=== PATIENT | female | born 1945 | race Caucasian/White ===

== ENCOUNTER 2018-07-28 20:26 | Inpatient (IN) | payer OTHER ==
[~2018-07-28] VITALS: Ht 162.6 cm; Wt 59.3 kg
[~2018-07-28 20:26] MED LIST: ALBUTEROL2.5 MG/31 INH; ALLEGRA ALLERG180 MG PO; CALCIUM 600 +1 EAC1 PO; CVS OMEGA-3 KR1 EACH PO; FLONASE 0.05%50 MCG NASAL; IRON325 PO; LEVAQUIN 500 M500 M3 PO; MAGNESIUM100 MG PO; OSTEO BI-FLEX1 EAC4 PO; PREDNISONE 10 M10 MG PO; PROTONIX40 M1 PO; REFRESH OPTIVE15 ML OPHTHALMIC; SINGULAIR 10 MG10 M1 PO; TYLENOL EXTRA500 MG PO; UNICOMPLEX M TA1 TA1 PO; VITAMIN D3400 UNIT PO
[2018-07-28 20:38] VITALS: BP 144/65
[2018-07-28] MEDS ORDERED: SEREVENT DISKU50 MCG INH (20:45)
[2018-07-28] MEDS ORDERED: IPRATROPIU0.2 MG/1 M INH (20:46)
[2018-07-28] MEDS ORDERED: ZYRTEC10 M5 PO (20:47)
[2018-07-28] MEDS ORDERED: OSTEO BI-FLEX1 EAC4 PO (20:49)
[2018-07-28] MEDS ORDERED: FISH OIL 1,001000 M2 PO (20:50)
[2018-07-28 21:10] LABS: HEMATOCRIT 36.7 % (37.0-47.0); HEMOGLOBIN 12.4 gm/dL (12.0-15.0); MCH 32.1 pg (26.0-34.0); MCHC 33.7 g/dL (28.0-37.0); MCV 95.1 fL (80.0-100.0); MPV 8.7 fl. (7.2-11.1); NUCLEATED RBCS 0 /100WBC; PLATELET COUNT* 278 thou/uL (150-400); RBC 3.86 mil/uL (4.20-5.00); RDW-CV 14.7 % (10.5-14.5); WBC 7.7 thou/uL (4.0-11.0)
[2018-07-28 21:11] LABS: INFLUENZA A ANTIGEN None Detected (None Detect); INFLUENZA B ANTIGEN None Detected (None Detect)
[2018-07-28 21:17] LABS: ALBUMIN 3.3 g/dL (3.4-5.0); POTASSIUM 3.8 mmol/L (3.5-5.1); TOTAL BILIRUBIN 0.1 mg/dL (<0.1-1.0); TOTAL PROTEIN 6.1 g/dL (6.4-8.2)
[2018-07-28 21:35] LABS: ABSOLUTE EOSINOPHILS 0.9 thou/uL (0.0-0.7); ABSOLUTE LYMPHOCYTES 1.5 thou/uL (0.8-5.3); ABSOLUTE MONOCYTES 0.5 thou/uL (0.0-1.2); ABSOLUTE NEUTROPHILS 4.7 thou/uL (1.6-8.1)
[2018-07-28 21:37] LABS: PLATELET ESTIMATE ADEQUATE
[2018-07-28 22:49] VITALS: BP 127/57
[2018-07-29] VITALS: BP 146/78
[2018-07-29] MEDS ORDERED: VITAMIN D31000 UNIT PO (02:36)
[2018-07-29] MEDS ORDERED: IPRAT-ALBUT 0.5-3 ML INH (02:36)
[2018-07-29] MEDS ORDERED: CALCIUM 600 +1 EAC2 PO (02:39)
[2018-07-29] MEDS ORDERED: PROBIOTIC1 EAC1 PO (02:40)
[2018-07-29] MEDS ORDERED: PROLIA60 MG/1 ML INJECTION (02:42)
[2018-07-29] MEDS ORDERED: VITAMINC500 PO (02:44)
[2018-07-29] MEDS ORDERED: MAGOX 400400 MG PO (02:46)
[2018-07-29 03:07] LABS: URINE BILIRUBIN NEGATIVE (Negative); URINE BLOOD 1+ (Negative); URINE CLARITY CLEAR; URINE COLOR YELLOW; URINE GLUCOSE-RANDOM NEGATIVE (Negative); URINE KETONES TRACE (Negative); URINE LEUKOCYTES 1+ (Negative); URINE NITRITE NEGATIVE (Negative); URINE PROTEIN NEGATIVE (Negative); URINE SPECIFIC GRAVITY 1.025 (1.005-1.030); URINE UROBILINOGEN 0.2 E.U./dl (0.2-1.0)
[2018-07-29 03:13] LABS: SQUAMOUS 4-10 Moderate /LPF (0-3); URINE WBC 6-15 Few /HPF (0-5)
[2018-07-29 03:14] LABS: BACTERIA >30 Many /HPF (None Seen); CASTS None Seen /LPF (None Seen); CRYSTALS None Seen /LPF (None Seen); MUCUS 0-3 Light strn/LPF (None Seen); URINE RBC 3-10 Few /HPF (0-2)
[2018-07-29 04:00] VITALS: BP 99/55
--- NOTE | 2018-07-29 05:47 | NUR ---
REPORT RECVIEVED FROM ER. PT ORIENTED TO ROOM, FALL AGREEMENT GONE OVER, CALL LIGHT SHOW, PT STATED UNDERSTANDING. ADMISSION DOCUMENTED. IV PATENT, ABX INFUSED. NO REPORTS OF PAIN. O2 ON THIS SHIFT. WILL CONTINUE WITH PLAN OF CARE.
[2018-07-29 07:50] VITALS: BP 124/70
--- NOTE | 2018-07-29 09:15 | EKG ---
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: Segundo VALERO : 1945 Requested By: Freda Torrez Order Number: [id number] MD: Alejandro Chanel Measurements Intervals [place] Rate: 92 P: 46 [place]: 192 QRS: -27 QRSD: 89 T: 22 QT: 330 QTc: 409 Interpretive Statements Sinus rhythm Ventricular premature complex Inferior infarct, old No previous ECG available for comparison Electronically Signed On 07-29-2018 9:15:45 CDT by Alejandro Chanel [email or web address] <ELECTRONICALLY SIGNED> By: Alejandro Chanel MD, [facility] 07/29/18914 50 50 Alejandro Chanel MD, FACC /EPI
[2018-07-29 15:30] VITALS: BP 113/59
--- NOTE | 2018-07-29 16:44 | NUR ---
SW met with pt and pt dtr to complete initial assessment, introduce self, and SW role. Pt was alert, oriented. Pt lives at home with her dtr and her dtr is very supportive and provides care as needed. Pt has a cane and a nebulizer. Pt does not have home oxygen. SW to continue to follow to assist with safe dc planning.
--- NOTE | 2018-07-29 17:34 | NUR ---
PATIENT RESTING IN BED. PATIENT UP STANDBY TO BATHROOM. PATIENT DENIES TROUBLE BREATHING, BUT IS SHORT OF AIR WITH EXERTION. PATIENT DENIES ANY PAIN. PATIENT HAS GOOD APPETITE. PATIENT DENIES ANY NEEDS AT THIS TIME. CALL LIGHT WITHIN REACH. WILL CONTINUE TO MONITOR.
[2018-07-29 19:30] VITALS: BP 117/56
[2018-07-30 04:00] VITALS: BP 110/56
[2018-07-30 04:22] LABS: HEMATOCRIT 35.9 % (37.0-47.0); HEMOGLOBIN 11.9 gm/dL (12.0-15.0); MCH 31.7 pg (26.0-34.0); MCHC 33.2 g/dL (28.0-37.0); MCV 95.5 fL (80.0-100.0); RBC 3.76 mil/uL (4.20-5.00); RDW-CV 14.7 % (10.5-14.5); WBC 13.2 thou/uL (4.0-11.0)
[2018-07-30 04:35] LABS: CALCIUM 8.5 mg/dL (8.5-10.1); CREATININE 0.8 mg/dL (0.6-1.3)
[2018-07-30 08:30] VITALS: BP 128/72
--- NOTE | 2018-07-30 10:48 | CON ---
[address] [address] CONSULTATION Name: ESTRADADONNIE Lora Room: [address] IN [facility].#: [id number] Admission: 07/28/18 Attend Phys: Regina Davenport MD Discharge: Date of : 45 Report #: [id number] THIS REPORT FOR: //name// CC: Rory Olsen JessicaVasquez Gale DATE OF SERVICE: 07/29/2018 ATTENDING PHYSICIAN: Rory Willis MD LOCATION: She is located in room 310. INDICATION FOR CONSULTATION: Asthma, wheezing, cough and shortness of air. CLINICAL SUMMARY: The patient is a 72-year-old female, lifelong nonsmoker, although she has had secondhand smoke exposure with a 12 to 14 year history of asthma. Over the last 3 to 5 days prior to admission, the patient had increasing cough or shortness of breath. I think she got a virus, thought her hiatal hernia with reflux was acting up. Denies any sinus drainage. She was taking her DuoNeb treatments 4 times a day at home, was not on any prednisone. She is supposed to see Dr. Kamara on Wednesday on 08/01/2018 for a new patient appointment. A portable chest x-ray showed COPD, kyphosis, possibly right hilar fullness. The patient denies any hemoptysis or weight loss. She is still wheezing and feels a little bit better. She is not on any oxygen at home. She is on 2 liters here in the hospital. She only takes prednisone tapers maybe once or twice a year at home for her asthma and bronchitis and it seems it has been helping her as of late. She has not been on Symbicort lately, it seemed to be too expensive and was not helping her. She has not been on Advair or Breo before. PAST MEDICAL HISTORY: She had a history of asthma with exacerbations, also bronchitis and pneumonia and hiatal hernia with reflux. Also has kyphosis and osteoporosis and is on Prolia for that. OUTPATIENT MEDICATIONS: Includes Prolia IV every 6 months. She is on Protonix 40 mg daily and Prolia 60 mg injection every 12 months or denosumab, calcium carbonate and vitamin D tablet 2 tablets each daily [id number] whatever one she can use, cetirizine 10 mg daily, Serevent Diskus 50 mcg 1 puff b.i.d. and then also montelukast 10 mg every evening. DuoNeb treatments 4 times a day. OTHER PAST MEDICAL AND SURGICAL HISTORY: Include asthma, GERD and surgical history includes tonsillectomy, hysterectomy in 1975, cholecystectomy in 1995, [place] [address] CONSULTATION Name: DONNIE ESTRADA Room: [address] IN ..#: [id number] Admission: 07/28/18 Attend Phys: Regina Davenport MD Discharge: Date of : 45 Report #: [id number] skin cancer in lower back in 1994, a broken left ankle in 2000 and breast biopsies, benign, in 2008. FAMILY HISTORY: Negative for premature cardiopulmonary disease. SOCIAL HISTORY: The patient is about 20 years from her . She was a never smoker. Her was a heavy smoker. She had secondhand smoke exposure from him. I think she started coughing and wheezing 10-15 years ago although they have been for 20 years and she drinks one glass of wine a month. She lives with her daughter in [place], [place]. Her daughter's name is Missy. REVIEW OF SYSTEMS: A 14-point review of systems reviewed and negative except for pertinent positives noted in the HPI. PHYSICAL EXAMINATION: VITAL SIGNS: Blood pressure is 124/70, heart rate is 88, respirations are 16, saturation on 2 liters 95%, and temperature is 36.7 degrees. She is 5 feet 4 inches tall and she used to be 5 feet 6 inches tall. She has lost 2 inches of height and weight 132 pounds or 60 kilograms. BMI is 22. HEENT: Nares and pharynx are clear. NECK: Limited range of motion, no increase in jugular venous pressure. CHEST: Reveals bilateral rhonchi and expiratory wheeze, right a little greater than left, but is bilateral prolonged expiratory phase. No stridor noted. CARDIOVASCULAR: Regular rate and rhythm without murmur, gallop or rub. Heart rate is 88. ABDOMEN: Soft and benign, without masses or megaly. EXTREMITIES: Trace edema on the right, none on the left. No cyanosis, clubbing or edema is noted. NEUROLOGIC: Grossly intact, moves all four commands to limbs and follows commands. Neurologic otherwise is grossly intact. LABORATORY DATA: From yesterday, hemoglobin is 12, white count 7700 and platelets are 278,000. Sodium is 147, potassium is 3.8, chloride 109, carbon dioxide is 29, BUN is 27, creatinine is 1.0 and glucose is 105. Albumin is normal at 3.3 and total protein is normal at 6.1. No ABGs on this patient. Serology: Influenza A and B are negative. Coags within normal limits. D-dimer was normal at 0.37. Urinalysis was unremarkable. Portable upright chest x-ray shows moderate kyphosis and some right hilar fullness, I think it is more of COPD and probably some pulmonary artery enlargement. She has flattened diaphragms. Hyperinflation is noted as well as a restrictive defect. IMPRESSION: Moderately severe chronic obstructive pulmonary disease with asthma. PLAN: Dr. Kamara can sit tight on Wednesday. [place] [address] CONSULTATION Name: DONNIE ESTRADA Room: [address] [place] [facility]#: [id number] Admission: 07/28/18 Attend Phys: Regina Davenport MD Discharge: Date of : 45 Report #: [id number] in the office on Wednesday. We will make sure she is stable though. If we need to we will see her in the office and obtain full PFTs. We will get a followup chest x-ray in the hospital and maybe a CT of the chest with contrast to make sure there is no right hilar adenopathy or mass lesions. Even though she is a nonsmoker, she has had secondhand smoke exposure. I do not think she needs bronchoscopy at this time. Full PFTs may be helpful and she may need to be on Breo 200/5 mcg 1 puff twice a day or Anoro might be another option 1 puff twice a day. She has tried Symbicort in the past and seemed to be effective. We will add some albuterol tablets and then Breo 200/5 mcg 1 puff daily would be a good option in the future for insurance covers this. Try and keep her off oral steroids. She may need a burst of about 2 weeks to get her cough or wheezing under control and then proceed from there. Thanks again for allowing us to participate in this lady's care. We will follow up along with you. Try and keep her with her osteoporosis, try and keep her off oral steroids, work on her kyphoscoliosis and start a flutter valve. She is up-to-date on her flu and pneumonia vaccines. <ELECTRONICALLY SIGNED> By: Talita Kwong MD 07/30/18 1048 1204 0115Antkeaton Miller MD /nt
[2018-07-30 15:43] VITALS: BP 96/43
--- NOTE | 2018-07-30 16:39 | NUR ---
PT HAS BEEN UP TO CHAIR AND CALLS FOR ASSIST TO BATHROOM WITH CANE.PT VOIDING WELL AND DRINKING FLUIDS WELL. PT ALERT AND ORIENTATED AND HAS BEEN ON ROOM AIR WITH SAT 92-94.HOURLY ROUNDING CONTINUES.
[2018-07-30 20:20] VITALS: BP 110/74
[2018-07-30 21:31] LABS: NT-PRO BRAIN NAT PEPTIDE 371 pg/mL (<300); TROPONIN-I LEVEL <0.06 ng/mL (<0.06)
[2018-07-30 22:50] VITALS: BP 101/68
[2018-07-30 23:30] VITALS: BP 116/56
[2018-07-31] VITALS (8 sets, daily range): BP systolic 101–132; BP diastolic 39–62
--- NOTE | 2018-07-31 00:37 | NUR ---
INITAL ASSESMENT COMPLATED AT 2019. PT RESTING IN ED AT THAT TIME. PT'S HEART RATE PER O2 SAT PROBE 151. PT PLACED ON CARD RUNNER, [address] NATALIE AGUERO. OBTAINED STAT TROPONIN AND B NATRIATIC PEPTIDE. PORTABLE CHEST XRAY DONE. DR ESTRADA CALLED BACK. REPORTED PT'S HEART RATE, RHYTHYM, BLOOD PRESSURE AND O2 SAT. REPORTED LABS AND XRAY IN PROGRESS. RECIEVED ORDERS. CARDIOLOGY CNSILUT CALLED. SPOKE WITH DR CAROLINA GUNDERSON. GAVE REPORT ON PT'S REASON FOR ADMISSION, VITAL SIGNS, 12 LEAD EKG. READ IMPRESSION OF PRTABLE CHEST XRAY. REPORTED MEDS AND BREATHING TREATMENTS. RECIEVED MULTIPLE ORDERS. PT GIVEN CARDIZEM BOLUS AND STARTED ON CARDIZEM DRIP. PT AFIB ON MONITOR. HEART RATE DECREASED TO 110-130. BLOOD PRESURE MONITORED Q 30 MINUTES AFTER BOLUS AND DRIP STARTED. MOST RECENT BLOOD PRESSURE 116/56. PT DENIES CHEST PAIN OR SHORTNESS OF AIR. PT PLACE ON O2 AT 2 LITERS NASAL CANULA PER CHEST PAIN PROTOCOL. PT GIVEN 325 MG PO ASPIRIN PER ORDERS. CALL LIGHT IN REACH. PT USING APROPRIATELY.
[2018-07-31 04:24] LABS: CREATININE 0.8 mg/dL (0.6-1.3); POTASSIUM 3.9 mmol/L (3.5-5.1)
[2018-07-31 05:13] LABS: CALCIUM 8.6 mg/dL (8.5-10.1)
--- NOTE | 2018-07-31 06:01 | NUR ---
PT IN AFIB RVR AT START OF SHIFT. PT GIVEN 10 CARDIZEM BOLUS FOLLOWED BY CARDIZEM DRIP AT 5 MG/HR. PT'S HEART RATE WAS 150-170 PRIOR TO STARTING CARDIZEM. PT'S HEART RATE CONTROLLED IN 90'S. PT'S BLOOD PRESSURE WITHIN NORMAL LIMITS. O2 SAT 95-99% ON 2 LITERS O2. PT ASYMPTOMATIC WHEN IN AFIB RVR. PT BEING TRANSFERED TO ROOM 214, REPORT GIVEN TO JACKY PERLA.
[2018-07-31 06:17] LABS: ABSOLUTE LYMPHOCYTES 1.8 thou/uL (0.8-5.3); ABSOLUTE NEUTROPHILS 8.7 thou/uL (1.6-8.1); BASOPHILS 0.3 %; EOSINOPHILS 0.4 %; HEMATOCRIT 35.5 % (37.0-47.0); HEMOGLOBIN 11.9 gm/dL (12.0-15.0); LYMPHOCYTES 15.4 %; MCH 32.2 pg (26.0-34.0); MCHC 33.6 g/dL (28.0-37.0); MCV 95.8 fL (80.0-100.0); MONOCYTES 8.4 %; MPV 9.3 fl. (7.2-11.1); NUCLEATED RBCS 0 /100WBC; PLATELET COUNT* 283 thou/uL (150-400); POLYS 75.5 %; RBC 3.71 mil/uL (4.20-5.00); RDW-CV 14.7 % (10.5-14.5); WBC 11.5 thou/uL (4.0-11.0)
--- NOTE | 2018-07-31 06:28 | NUR ---
pt transfer complete. called pt's daughter and gave update on change in condition, treatments and tests done and pt's new room #.
--- NOTE | 2018-07-31 06:45 | NUR ---
REPORT RECEIVED FROM Austin BAIG. PT TRANSFERRED TO ROOM 214 AT APPROXIMATELY 0615. PT ORIENTED TO ROOM, CALL LIGHT. VOICES UNDERSTANDING ABOUT FALL PRECAUTIONS. TRACING AFIB ON MONITOR. CLWR.
--- NOTE | 2018-07-31 16:24 | CON ---
[address] [address] CONSULTATION Name: DONNIE ESTRADA Room: [address] IN .R.#: [id number] Admission: 07/28/18 Attend Phys: Regina Davenport MD Discharge: Date of : 45 Report #: [id number] THIS REPORT FOR: //name// CC: Regina Laraa. [facility] CARDIOLOGY CONSULTATION. HISTORY OF PRESENT ILLNESS: I was asked by Dr. Regina Davenport to see this 72-year-old white female in cardiology consultation for evaluation and treatment of paroxysmal atrial fibrillation. This lady was admitted to the hospital on 07/28/2018 with acute hypoxic respiratory failure and asthma. There are some questions as to whether she had sepsis and pneumonia. She was found to be in atrial fibrillation last night on the medical floor, she was in room 310 last night. She was not on a monitor. The nurse noted her pulse was rapid and irregular. An EKG was obtained and showed atrial fibrillation with a rapid ventricular response and she was subsequently placed on a monitor. She was transferred to telemetry and started on diltiazem and this morning converted to sinus rhythm. She was asymptomatic with her atrial fibrillation. She was completely unaware of being in it, she had absolutely no complaints. This lady has no prior cardiac history whatsoever. She has never had angina or chest pain. She has never had a heart attack. She denies dyspnea on exertion, shortness of breath at rest, orthopnea, PND or edema. She has not had syncope or near syncope. She has no coronary risk factors, she does not smoke and never smoked, does not have hypercholesterolemia, diabetes, high blood pressure or family history of heart disease. She has not had renal disease or peripheral vascular disease. She has never had a stroke or TIA, does not have claudication or open or nonhealing wounds. She has no prior cardiac history whatsoever. She does have a history of asthma. MEDICATIONS: Home medication list is extensive. The home medication list includes Zyrtec 10 mg daily, Prolia 60 mg injected every 6 months, fluticasone nasal spray daily, DuoNeb q.6 hours at home, Mag-Ox 400 daily as needed for leg cramps, montelukast 10 mg daily, pantoprazole 40 mg daily and Serevent one inhalation twice a day. In the hospital, she was getting DuoNebs q.4 hours. She was subsequently switched to Xopenex 0.63 mg q.8 hours when she was found to be in atrial fibrillation. ALLERGIES: SHE IS SENSITIVE TO ASPIRIN IN THAT IT UPSETS HER STOMACH. SHE IS ALLERGIC TO ERYTHROMYCIN AND CLARITIN-D, WHICH GAVE HER HIVES. REVIEW OF SYSTEMS: Positive for cough, sputum production, pneumonia, emphysema, asthma, seasonal allergies, medical allergies, aspirin sensitivity, arthritis in the right knee, wears glasses, and bleeding from the nose. Otherwise, review of systems is negative for some 40 different complaints in 14 different system categories including central nervous system, general, respiratory, [place] [address] CONSULTATION Name: DONNIE ESTRADA Room: [address] IN [facility]#: [id number] Admission: 07/28/18 Attend Phys: Regina Davenport MD Discharge: Date of : 45 Report #: [id number] cardiovascular, endocrine, gastrointestinal, genitourinary, hematologic, lymphatic, allergic, immunologic, psychiatric, musculoskeletal, skin, eyes, ears, nose, mouth, and throat. Please see review of system form for details and negatives in the review of systems. SOCIAL HISTORY: She is . 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 She never ever drank and never ever smoked cigarettes. FAMILY HISTORY: Remarkable for father dying of a heart attack. There is no family history of sudden or other cardiac issues. PHYSICAL EXAMINATION: GENERAL: She presents as a well-developed, well-nourished white female, in no acute distress. She is able to talk in paragraphs. VITAL SIGNS: Her pulse is 90 and regular, blood pressure is 109/61, respirations are 15 and regular, temperature is 98.7. HEENT: Her head was atraumatic. Eyes clear. NECK: Supple. There is no jugular venous distention or hepatojugular reflux. Thyroid is not enlarged. No adenopathy. SKIN: Warm and dry. Mucous membranes are moist. LUNGS: Clear to auscultation and percussion. HEART: Revealed normal first and second heart sounds. There is soft S4. There is no S3. There are no murmurs, rubs, thrills, heaves or gallops. PMI is nondisplaced. ABDOMEN: Soft, flat, nontender, no palpable masses, no organomegaly. EXTREMITIES: Reveal no cyanosis, clubbing or edema. NEUROLOGIC: The patient mentated normally, talked normally, moved all extremities normally. LABORATORY DATA: Troponins on this lady last night were negative x 3 and she had a normal NT-proBNP. Her EKG on admission showed normal sinus rhythm with one VPC. The computer called an old inferior infarct, but I do not think there is. There are very small R waves in leads 3 and F and a normal R-wave in lead 2. Her EKG last night showed atrial fibrillation with a rapid ventricular response. Again, the computer called it inferior and lateral infarct; I do not see that on the EKG myself. IMPRESSION: 1. Paroxysmal atrial fibrillation. 2. Acute hypoxic respiratory failure, now resolved. 3. Asthma with an asthmatic exacerbation, now improved. RECOMMENDATION: Get a nuclear stress test and an echo. She also should have an outpatient event recorder. I think this was probably an isolated event related to her severe respiratory insufficiency that has now resolved and also likely exacerbated by the aggressive [place] [address] CONSULTATION Name: DONNIE ESTRADA Room: [address] IN .R.#: [id number] Admission: 07/28/18 Attend Phys: Regina Davenport MD Discharge: Date of : 45 Report #: [id number] Thank you very much for asking me to see the patient. If there are any questions, please feel free to contact me. <ELECTRONICALLY SIGNED> By: Steve Hunter MD, FACC 07/31/18 1624 1222 1529F. Shubham Hunter MD, FAC /nt
--- NOTE | 2018-07-31 17:47 | EKG ---
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: PHILIPP : 1945 Requested By: Levy Couch Order Number: [id number] Neto MD: Alejandro Chanel Measurements Intervals [place] Rate: 156 P: [place]: QRS: -28 QRSD: 129 T: -28 QT: 269 QTc: 434 Interpretive Statements supraventricular tachycardia Artifact in lead(s) I,II,III,aVR,aVL Compared to ECG 07/28/2018 20:51:48 Sinus rhythm no longer present Electronically Signed On 07-31-2018 17:47:24 CDT by Alejandro Chanel [email or web address] <ELECTRONICALLY SIGNED> By: Alejandro Chanel MD, [facility] 07/31/18 1747 55 55 Alejandro Chanel MD, [facility] /EPI
--- NOTE | 2018-07-31 18:55 | NUR ---
I ASSUMED CARE OF THE PATIENT AT 0700. SHE IS ALERT AND ORIENTED X4 AND IS UP WITH ASSIST OF 1. SHE LIVES AT HOME WITH HER DAUGHTER. BED IS IN THE LOW LOCKED POSITION AND CALL LIGHT IS IN REACH. HOURLY ROUNDING WAS COMPLETED AND PATIENT NEEDS ARE MET. PAIN IS DENIED. IV WAS REMOVED AND NEW LINE WAS PLACED. STRESS TEST IS 08/01. CARDIZEM DRIP WAS D/C'D AFTER PATIENT CONVERTED. WILL CONTINUE TO MONITOR.
[2018-08-01] VITALS: BP 121/83
[2018-08-01 04:00] VITALS: BP 120/90
--- NOTE | 2018-08-01 05:27 | NUR ---
ASSUMED PT CARE AT 1930. 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 PT DENIES PAIN THIS SHIFT, NPO AFTER MIDNIGHT FOR STRESS TEST. CALL LIGHT WITHIN REACH.
[2018-08-01 08:00] VITALS: BP 122/77
--- NOTE | 2018-08-01 09:58 | EKG ---
[place] [address] ELECTROCARDIOGRAM REPORT Name: DONNIE ESTRADA Room: [address] ADM IN .R.#: [id number] Admission: 07/28/18 Attend Phys: Regina Davenport MD Discharge: Date of : 45 Report #: [id number] THIS REPORT FOR: //name// [facility] Test Date: 2018-07-31 Test Time: 12:42:33 Pat Name: DONNIE ESTRADA Department: Room: [address] Gender: F Customer Project Manager: : 1945 Requested By: Steve Hunter Order Number: [id number] Reading MD: Alejandro Chanel Measurements Intervals [place] Rate: 82 P: 14 [place]: 187 QRS: -24 QRSD: 86 T: 8 QT: 349 QTc: 408 Interpretive Statements Sinus rhythm Supraventricular bigeminy Borderline left axis deviation Low voltage, precordial leads Consider anterior infarct Compared to ECG 07/30/2018 20:56:49 Supraventricular tachycardia no longer present Electronically Signed On 08-01-2018 9:58:23 CDT by Alejandro Chanel [email or web address] <ELECTRONICALLY SIGNED> By: Alejandro Chanel MD, FACC 08/01/18 0958 1242 1242 Alejandro Chanel MD, FAC /EPI
--- NOTE | 2018-08-01 11:54 | NUR ---
ASSUMED PT CARE AT 0800, LYING IN BED, FAMILY AT BEDSIDE, DENIES PAIN. PT O2 SAT 94% NC 2L. A0X4, SBA, USES CANE. 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 COUGHING, WHEEZES NOTED. ABDOMEN SOFT, ROUND LAST BM THIS AM, IV ACCESS INTACT. NPO FOR STRESS TEST. FOR ECHO. VSS, AM ASSESSMENT CHARTED, MEDS PER MAR, HOURLY ROUNDING OBSERVED, SAFETY PRECAUTION, CALL LIGHT WITHIN REACH, WILL CONTINUE TO MONITOR.
[2018-08-01 13:05] VITALS: BP 129/71
[2018-08-01 16:30] VITALS: BP 119/63
--- NOTE | 2018-08-01 16:33 | CARDNUC ---
[place] [address] CARDIAC NUCLEAR IMAGING REPORT Name: DONNIE ESTRADA Room: [address] IN [facility]#: [id number] Admission: 07/28/18 Attend Phys: Regina Davenport, Discharge: Date of : 45 Date of Service: 08/01/18 1633 Report #: [id number] THIS REPORT FOR: //name// APPROVED REPORT Imaging Protocol: Rest Tc-99m/Stress Tc-99m 1 day Study performed: 07/31/2018 12:40:00 Indication: RVR, New onset Afib. Patient Location: In-Patient Room #: [facility] Stress Tech: Ashley Olivarez Stress Nurse: Piper Stone RN Ht: 5 ft 4 in Wt: 133 lbs BSA: 1.64 m2 BMI: 22.82 Medical History Medical History: Arrhythmia, Atrial Fibrillation, No history of CAD. Medications: Diltiazem. Allergies: ASA, Erythromycin, Loratadine, Pseudoephedrine. Cardiac Risk Factors: Age. Previous Cardiac Procedures: None Pretest Chest Pain Characteristics: No chest pain Exercise History: Sedentary Physical Disabilities: Fall risk, uses cane for ambulation, unsteady. Meds Held (24 hrs): None Resting Data Rest SPECT myocardial perfusion imaging was performed in supine position 30 minutes following the intravenous injection of 12.0 mCi of Tc-99m Sestamibi. Time of rest injection: 08:30 The images were gated to evaluate regional wall motion and calculate left ventricular ejection fraction. Administration Route: IV Administration Site: Left Arm Pharmacologic Stress Pharmacologic stress test was performed by injecting Regadenoson 0.4 mg IV push over 10-15 seconds immediately followed by the intravenous injection of 31.5 mCi of Tc-99m Sestamibi. Time of stress injection: 09:50 [place] [address] CARDIAC NUCLEAR IMAGING REPORT Name: DONNIE ESTRADA Room: [address] IN ..#: [id number] Admission: 07/28/18 Attend Phys: Regina Davenport, Discharge: Date of : 45 Date of Service: 08/01/18 1633 Report #: [id number] Administration Route: IV Administration Site: Left Arm Heart Rate at time of stress injection: 103 bpm. Gated Stress SPECT was performed 45 minutes after stress injection. The images were gated to evaluate regional wall motion and calculate left ventricular ejection fraction. Stress Test Details Stress Test: Pharmacologic stress testing performed using 0.4 mg of regadenoson per 5 mL given IV over 10 seconds. Reason for pharmacologic stress test: Fall risk, Uses cane to ambulate, unsteady.. HR Max Heart Rate (APMHR): 148 bpm Resting HR: 81 bpm Target HR (85% APMHR): 125 bpm Max HR Achieved: 113 bpm % of APMHR: 76 Recovery HR: 100 bpm BP Resting BP: 121/84 mmHg Max BP: 129/79 mmHg Recovery BP: 137/81 mmHg BP response to stress: Normal blood pressure response to stress. ECG Resting ECG: nsr Stress ECG: nsr pvc ST Change: none Arrhythmia: none Recovery ECG: nsr Recovery ST Change: none Recovery Arrhythmia: none Clinical Reason for Termination: Completed protocol Stress Symptoms: Lightheaded, Stomach ache. Exercise duration: 0 min 0 sec Exercise capacity: 1.00 METs Nurse Comments 72 year old female inpatient presented mildly/pleasantly confused, unstable gait. Patient required 2x assist to transfer. Patient tolerated sitting Lexiscan well with minimal side effects which resolved with PO caffeine. Recovery [place] [address] CARDIAC NUCLEAR IMAGING REPORT Name: DONNIE ESTRADA Room: [address]#: [id number] Admission: 07/28/18 Attend Phys: Regina Davenport, Discharge: Date of : 45 Date of Service: 08/01/18 1633 Report #: [id number] via wheelchair by staff to Nuclear Medicine for images. Patient stable with no complaints at that time. Stress ECG Conclusion negative Study Quality Study: Good Artifact: Mild Breast artifact Lung Uptake: Normal Study Data SSS: 3 SRS: 0 SDS: -3 TID = 0.69. Perfusion Review of rest data reveals normal perfusion, without perfusion defects.Imaging obtained following vasodilator stress demonstrate a similar, uniform uptake of tracer without defects. Prone imaging was normal. LVEDV is normal.No segental wall motion abnormality seen. Images were reviewed using Qomuty. Wall Motion normal all segments Nuclear Conclusion ECG Findings: negative for ischemia Clinical Findings: negative for ischemia Nuclear Findings: negative for ischemia Exercise Capacity: not assessed Left Ventricular Function: normal Risk Study: low Negative perfusion nuclear stress test for ischemia or infarct. <Conclusion> negative <ELECTRONICALLY SIGNED> By: Duane Bowman MD, FACC 08/01/18 1633 1633 1633 Duane Bowman MD, FACC /INF
--- NOTE | 2018-08-01 17:32 | 2DMMODE ---
[place] [address] 2 D/M-MODE ECHOCARDIOGRAM Name: DONNIE ESTRADA Room: [address] IN [facility]#: [id number] Admission: 07/28/18 Attend Phys: Regina Davenport, Discharge: Date of : 45 Date of Service: 08/01/18 1732 Report #: [id number] THIS REPORT FOR: //name// APPROVED REPORT Study performed: 08/01/2018 14:24:23 EXAM: Comprehensive 2D, Doppler, and color-flow Echocardiogram Patient Location: In-Patient Room #: [facility] Status: routine BSA: 1.64 HR: 89 bpm BP: 120/90 mmHg Rhythm: NSR Other Information Study Quality: Good Indications Chest Pain 2D Dimensions IVSd: 9.67 (7-11mm) LVOT Diam: 21.06 (18-24mm) LVDd: 51.65 mm PWd: 8.10 (7-11mm) LVDs: 31.25 (25-40mm) Aortic Root: 29.23 mm Volumes Left Atrial Volume (Systole) LA ESV Index: 23.00 mL/m2 Aortic Valve AoV Peak Tim.: 2.31 m/s AO Peak Gr.: 21.32 mmHg LVOT Max P.07 mmHg AO Mean Gr.: 10.81 mmHg LVOT Mean P.22 mmHg LVOT Max V: 1.33 m/s AO V2 VTI: 34.27 cm LVOT Mean V: 0.81 m/s ADELE (VTI): 2.23 cm2 LVOT V1 VTI: 21.92 cm AI [place]: 2.74 m/s2 AI PHT: 441.40 ms Mitral Valve E/A Ratio: 0.73 [place] [address] 2 D/M-MODE ECHOCARDIOGRAM Name: DONNIE ESTRADA Room: [address] IN .R.#: [id number] Admission: 07/28/18 Attend Phys: Regina Davenport, Discharge: Date of : 45 Date of Service: 08/01/18 1732 Report #: [id number] MV Decel. Time: 196.83 ms MV E Max Tim.: 0.85 m/s MV PHT: 57.08 ms MVA (PHT): 3.85 cm2 TDI E/Lateral E': 5.67 E/Medial E': 7.73 Medial E' Tim.: 0.11 m/s Lateral E' Tim.: 0.15 m/s Pulmonary Valve PV Peak Tim.: 1.18 m/s PV Peak Gr.: 5.56 mmHg Tricuspid Valve RAP Estimate: 5.00 mmHg TR Peak Gr.: 26.46 mmHg RVSP: 31.00 mmHg PA Pressure: 31.00 mmHg Left Ventricle The left ventricle is normal size. There is normal LV segmental wall motion. There is normal left ventricular wall thickness. Left ventricular systolic function is normal. The left ventricular ejection fraction is within the normal range. LVEF is 65-70%. Grade I - abnormal relaxation pattern. Right Ventricle The right ventricle is normal size. The right ventricular systolic function is normal. Atria The left atrium size is normal. The right atrium size is normal. Aortic Valve Mild aortic valve sclerosis. Mild aortic regurgitation. There is no aortic valvular stenosis. Mitral Valve The mitral valve is normal in structure. There is no mitral valve regurgitation noted. No evidence of mitral valve stenosis. Tricuspid Valve The tricuspid valve is normal in structure. Trace tricuspid regurgitation. estimate pa pressure 35 [place] [address] 2 D/M-MODE ECHOCARDIOGRAM Name: DONNIE ESTRADA Room: [address]#: [id number] Admission: 07/28/18 Attend Phys: Regina Davenport, Discharge: Date of : 45 Date of Service: 08/01/18 1732 Report #: [id number] Pulmonic valve is not well visualized. There is no pulmonic valvular regurgitation. Great Vessels The aortic root is normal in size. IVC is normal in size and collapses >50% with inspiration. Pericardium There is no pericardial effusion. <Conclusion> LVEF is 65-70%. Mild aortic regurgitation. <ELECTRONICALLY SIGNED> By: Alejandro Chanel MD, [facility] 08/01/18 [phone] Alejandro Chanel MD, FACC /INF
--- NOTE | 2018-08-01 18:19 | NUR ---
PT AOX4, SBA, 02 SAT AT 90'S NC 1L,USES CANE. FAMILY AT BEDSIDE. DENIES ANY PAIN. NOTED COUGH AND WHEEZES. TRACING SR PAC AT TELE. IV ACCESS INTACT PT HAVE STRESS TEST, ECHO TODAY. CALL LIGHT WITHIN REACH, FALL PRECAUTION. MEDS GIVEN PER MAR, VSS, CHARTED. ALL NEEDS MET AT THIS TIME. WILL CONTINUE TO MONITOR.
--- NOTE | 2018-08-01 19:36 | NUR ---
THIS RN HAS REVIEWED AND AGREES WITH THE CHARTING OF DERIAN PERLA ON 08/01/18. PTS DISCHARGE HELD TODAY DUE TO PT FEELING ANXIOUS AND "WHEEZY", DR NASCIMENTO AND DR GUAJARDO AWARE. PT RESTING COMFORTABLY IN BED, REPORT GIVEN TO ERIC PERLA
[2018-08-02] VITALS: BP 103/55
[2018-08-02 04:33] VITALS: BP 116/55
[2018-08-02 05:24] LABS: HEMATOCRIT 38.3 % (37.0-47.0); HEMOGLOBIN 12.8 gm/dL (12.0-15.0); MCH 31.3 pg (26.0-34.0); MCHC 33.3 g/dL (28.0-37.0); MPV 8.6 fl. (7.2-11.1); NUCLEATED RBCS 0 /100WBC; PLATELET COUNT* 308 thou/uL (150-400); RBC 4.07 mil/uL (4.20-5.00); RDW-CV 14.7 % (10.5-14.5); WBC 10.5 thou/uL (4.0-11.0)
[2018-08-02 05:35] LABS: ALBUMIN 2.9 g/dL (3.4-5.0); CALCIUM 8.2 mg/dL (8.5-10.1); CREATININE 0.8 mg/dL (0.6-1.3); POTASSIUM 4.1 mmol/L (3.5-5.1); TOTAL BILIRUBIN 0.3 mg/dL (<0.1-1.0); TOTAL PROTEIN 5.7 g/dL (6.4-8.2)
[2018-08-02 06:13] LABS: ABSOLUTE LYMPHOCYTES 0.5 thou/uL (0.8-5.3); ABSOLUTE MONOCYTES 0.7 thou/uL (0.0-1.2); ABSOLUTE NEUTROPHILS 9.2 thou/uL (1.6-8.1); ANISOCYTOSIS 1+; PLATELET ESTIMATE ADEQUATE; POIKILOCYTOSIS 1+
[2018-08-02 08:00] VITALS: BP 113/52
--- NOTE | 2018-08-02 09:52 | NUR ---
ASSUMED PT CARE 0800, LYING IN BED AOX4, SBA USES CANE. PT O2 SAT 94% NC 1L. TRACING SR, PAC ON APPLICATION SUPPORT CONSULTANT. PT SAYS SHE FEELS BETTER TODAY. PT GOAL IS TO TITRATE O2, FOR DISCHARGE. PT IV ACCESS INTACT, ABDOMEN SOFT/ROUND, LAST BM 08/01/18. VSS, AM ASSESSMENT CHARTED, MEDS GIVEN PER MAR. CALL LIGHT WITHIN REACH, REPOSITION SELF, ENCOURAGED DEEP BREATHING, HOURLY ROUNDING OBSERVED. WILL CONTINUE TO MONITOR.
[2018-08-02 10:47] VITALS: BP 113/52
[2018-08-02] MEDS ORDERED: CEFDINIR300 MG PO (11:00)
[2018-08-02] MEDS ORDERED: PREDNISONE 10 M10 MG PO (11:02)
[2018-08-02] MEDS ORDERED: LEVALBUTER0.63 MG/3 INH (11:07)
[2018-08-02] MEDS ORDERED: CARDIZEM CD120 MG PO (11:08)
[2018-08-02] MEDS ORDERED: ASPIR 8181 MG PO (11:17)
--- NOTE | 2018-08-02 12:48 | NUR ---
PT DISCHARGED UNIT AROUND 1240. IV, TELE REMOVED. PT DISCHARGE PACKET DISCUSSED, MEDICATION EDUCATION, SCRIPT GIVEN, PT AND DAUGHTER COMMUNICATES UNDERSTANDING. PT BELONGINGS CHECK AND PACKED. REMIND TO FOLLOW UP WITH PHYSICIAN.
--- NOTE | 2018-08-02 13:43 | NUR ---
i have reviewed and agree with the assesement and notes of Lana PERLA, pt discharged with daughter. discussed discharge instructions, answered all questions
== END 2018-08-02 12:40 | disposition home or self-care (01) | DRG 871 ==
LOC: M.ERS 20:26 → M.TBA-ER 22:14 → M.2W 22:14 → M.3W 22:14 → M.2W 07-31 06:27
PROVIDERS: Emergency Medicine; Internal Medicine; ADMIT Internal Medicine
DX: A41.9 Sepsis, unspecified organism (principal); J15.6 Pneumonia due to other Gram-negative bacteria; J96.01 Acute respiratory failure with hypoxia; J45.51 Severe persistent asthma with (acute) exacerbation; E87.0 Hyperosmolality and hypernatremia; J44.1 Chronic obstructive pulmonary disease with (acute) exacerbation; J44.0 Chronic obstructive pulmonary disease with (acute) lower respiratory infection; K21.9 Gastro-esophageal reflux disease without esophagitis; M81.0 Age-related osteoporosis without current pathological fracture; I48.0 Paroxysmal atrial fibrillation; K44.9 Diaphragmatic hernia without obstruction or gangrene; E86.9 Volume depletion, unspecified; Z85.828 Personal history of other malignant neoplasm of skin; Z90.710 Acquired absence of both cervix and uterus; Z90.49 Acquired absence of other specified parts of digestive tract; Z79.51 Long term (current) use of inhaled steroids; Z79.899 Other long term (current) drug therapy; Z88.1 Allergy status to other antibiotic agents; Z88.6 Allergy status to analgesic agent; Z88.8 Allergy status to other drugs, medicaments and biological substances